=== PATIENT | male | born 1960 | race Caucasian/White ===

== ENCOUNTER 2019-12-27 08:34 | Inpatient (IN) | payer SELFPAY ==
[2019-12-27] VITALS (13 sets, daily range): BP systolic 89–136; BP diastolic 54–89
[~2019-12-27] VITALS: Ht 175.3 cm; Wt 102.5 kg
[2019-12-27] MEDS ORDERED: SODIUM CHLORIDE 0.9% 1000ML 1,000 ML IV STA ×2 (09:02→09:20)
--- NOTE | 2019-12-27 09:11 | NUR ---
GREEN SHEET ON CHART PER POLICY
[2019-12-27 09:12] LABS: BASOPHILS # (AUTO) 0.1 (0.0-0.1); BASOPHILS % 1.9 % (0.0-1.0); EOSINOPHILS # (AUTO) 0.7 (0.0-0.4); EOSINOPHILS % 9.8 % (0.0-6.0); HEMATOCRIT 45.9 % (38.2-49.6); HEMOGLOBIN 16.6 g/dL (14.0-18.0); LYMPHOCYTES # (AUTO) 1.3 (1.0-3.2); LYMPHOCYTES % 17.3 % (18.0-39.1); MEAN CORPUSCULAR HEMOGLOBIN 32.5 pg (28-32); MEAN CORPUSCULAR HGB CONC 36.2 g/dL (31-35); MONOCYTES # (AUTO) 0.8 (0.2-0.8); MONOCYTES % 10.3 % (4.4-11.3); NEUTROPHILS # (AUTO) 4.4 (2.1-6.9); NEUTROPHILS % 60.2 % (38.7-80.0); PLATELET COUNT 255 x10e3/uL (140-360); RED CELL DISTRIBUTION WIDTH 11.5 % (11.7-14.4)
[2019-12-27 09:23] LABS: INR 0.81; PROTHROMBIN TIME 11.6 seconds (11.9-14.5)
[2019-12-27 09:24] LABS: PARTIAL THROMBOPLASTIN TIME 25.9 seconds (23.8-35.5)
[2019-12-27 09:25] LABS: ABG HCO3 22 mmol/L (22-26); ABG PCO2 39 mmHg (35-45); ABG PH 7.37 (7.35-7.45); ABG PO2 100 mmHg (80-105); ABG TCO2 24
[2019-12-27 09:26] LABS: ALBUMIN 3.8 g/dL (3.5-5.0); ALBUMIN/GLOBULIN RATIO 0.7 (0.8-2.0); CALCIUM 9.1 mg/dL (8.4-10.2); CREATININE, SERUM 2.64 mg/dL (0.72-1.25); MAGNESIUM 2.7 MG/DL (1.3-2.1)
[2019-12-27 09:30] LABS: POTASSIUM 4.6 mmol/L (3.5-5.1)
[2019-12-27 09:32] LABS: CREATINE KINASE MB 0.9 ng/mL (0-5.0)
[2019-12-27 09:36] LABS: B-TYPE NATRIURETIC PEPTIDE2 11.7 pg/mL (0-100)
[2019-12-27 09:40] LABS: ANION GAP 21.6 mmol/L (8-16)
[2019-12-27 09:51] LABS: CLARITY,URINE CLEAR (CLEAR); COLOR,URINE YELLOW (YELLOW)
[2019-12-27 09:52] LABS: BILIRUBIN,URINE NEGATIVE (NEGATIVE); KETONES,URINE NEGATIVE (NEGATIVE); LEUKOCYTE ESTERASE ,URINE NEGATIVE (NEGATIVE); NITRITE,URINE NEGATIVE (NEGATIVE); PROTEIN,URINE DIPSTICK NEGATIVE (NEGATIVE); URINE UROBILINOGEN 0.2 mg/dL (0.2 - 1)
[2019-12-27 09:55] LABS: WBC,URINE (MAN) 0-5 /HPF (0-5)
[2019-12-27 09:56] LABS: EPITHELIAL CELLS,URINE FEW /LPF; RBC,URINE 0-5 /HPF (0-5)
[2019-12-27] MEDS ORDERED: INSULIN REGULAR, HUMAN 100 UNIT/1 ML 3ML VIAL IV ONE (10:15)
[2019-12-27] MEDS: CEFTRIAXONE SOD 1 GM/NS 50 ML 50 ML IV SCH (10:20)
[2019-12-27] MEDS: AZITHROMYCIN 500MG/NS 250 ML 250 ML IV SCH (10:20)
--- NOTE | 2019-12-27 10:43 | Diagnostic Imaging Report ---
EXAMINATION: CHEST SINGLE (PORTABLE) INDICATION: Shortness of breath. COMPARISON: None FINDINGS: TUBES and LINES: None. LUNGS: Normal lung volumes. There is hazy opacification the bilateral lung bases with prominent interstitial lung markings. PLEURA: There is probable bilateral small pleural effusion. No pneumothorax. HEART AND MEDIASTINUM: The cardiomediastinal silhouette is unremarkable. BONES AND SOFT TISSUES: No acute osseous lesion. Soft tissues are unremarkable. UPPER ABDOMEN: No free air under the diaphragm. IMPRESSION: 1. Hazy opacification the bilateral lung bases with prominent interstitial markings which may represent bibasilar atelectasis or developing multifocal pneumonia in the proper clinical context. 2. Probable small bilateral pleural effusion. Signed by: Jakub Figueroa MD on 12/27/2019 10:40 AM
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
[2019-12-27] MEDS ORDERED: DEXTROSE 5%/0.45% SOD CHL 1,000 ML IV SCH (11:30)
[2019-12-27] MEDS ORDERED: POTASSIUM CHLORIDE 20MEQ/100ML 200 ML IV PRN (11:30)
[2019-12-27] MEDS ORDERED: MAGNESIUM SULF 1GRAM/DEXTROSE 100 ML IV PRN (11:30)
[2019-12-27] MEDS ORDERED: INSULIN REGULAR, HUMAN 3ML VL 100 UNIT in SODIUM CHLORIDE 0.9% 99 ML IV SCH ×4 (11:30→14:30)
[2019-12-27 11:36] LABS: AMPHETAMINES SCREEN,URINE NEGATIVE (NEGATIVE); BENZODIAZEPINES SCREEN,URINE NEGATIVE (NEGATIVE); PHENCYCLIDINE SCREEN,URINE NEGATIVE (NEGATIVE)
[2019-12-27] MEDS ORDERED: ONDANSETRON HCL INJ 2MG/ML 2ML 2 MG/ML VIAL IV PRN (11:45)
[2019-12-27] MEDS ORDERED: LORAZEPAM INJ 2 MG/ML VIAL IV ONE (11:45)
--- NOTE | 2019-12-27 11:46 | NUR ---
Nursing report given Ulises TAM
[2019-12-27] MEDS ORDERED: LORAZEPAM INJ 2 MG/ML VIAL ONE (11:59)
--- OUTSIDE RECORDS SUMMARY | 2019-12-27 11:59 | XMS REPORT | Continuity of Care Document ---
Author Author [facility] t Organization [facility] Address [address] [place] [address] Dr. Vasquez [address] [place] [phone] Phone Unavailable Care Team Providers Care Blood Bank Laboratory Technician Name Role Phone Devon JARAMILLO Attphys Unavailable Problems This patient has no known problems. Allergies, Adverse Reactions, Alerts This patient has no known allergies or adverse reactions. Medications This patient has no known medications. Procedures This patient has no known procedures. Results Test Description Test Time Test Comments Results Result Comments Source CHEST SINGLE (PORTABLE) 2019-12-27 10:38:00 [place] [address] Patient Name: DENISA SHINE MR #: [id number] : 1960 Age/Sex: 59/M Req #: [id number] Adm Physician: Ordered by: SHAYY JARAMILLO MD Report #: [id number] Location: ER Room/Bed: Procedure: [id number] DX/CHEST SINGLE (PORTABLE) Exam Date: 12/27/19 Exam Time: 0940 REPORT STATUS: Signed EXAMINATION: CHEST SINGLE (PORTABLE) INDICATION: Shortness of breath. COMPARISON: None FINDINGS: TUBES and LINES: None. LUNGS: Normal lung volumes. There is hazy opacification the bilateral lung bases with prominent i nterstitial lung markings. PLEURA: There is probable bilateral small pleural effusion. No pneumothorax. HEART AND MEDIASTINUM: The cardiomediastinal silhouette is unremarkable. BONES AND SOFT TISSUES: No acute osseous lesion. Soft tissues are unremarkable. UPPER ABDOMEN: No free air under the diaphragm. IMPRESSION: 1. Hazy opacification the bilateral lung bases with prominent interstitial markings which may represent bibasilar atelectasis or developing multifocal pneumonia in the proper clinical context. 2. Probable small bilateral pleural effusion. Signed by: Keren Arroyo MD on 12/27/2019 10:40 AM Dictated By: KEREN ARROYO MD 104 Transcribed By: ELIJAH on 12/27/19 104 COPY TO: SHAYY JARAMILLO MD
[2019-12-27] MEDS ORDERED: LORAZEPAM INJ 2 MG/ML VIAL IV NR (12:00)
[2019-12-27] MEDS: SODIUM CHLORIDE 0.9% 1000ML 1,000 ML IV SCH ×2 (13:43→14:51)
[2019-12-27 13:56] LABS: ANION GAP 16.2 mmol/L (8-16); CALCIUM 8.1 mg/dL (8.4-10.2); CREATININE, SERUM 1.87 mg/dL (0.72-1.25); MAGNESIUM 2.5 MG/DL (1.3-2.1); POTASSIUM 4.2 mmol/L (3.5-5.1)
[2019-12-27 14:03] LABS: CREATINE KINASE MB 0.9 ng/mL (0-5.0)
[2019-12-27] MEDS ORDERED: DEXTROSE 50% SYRINGE 50 ML IV PRN ×2 (14:15→16:15)
[2019-12-27] MEDS ORDERED: THIAMINE HCL INJ 100 MG/ML 2ML VIAL IV NR (15:00)
--- NOTE | 2019-12-27 15:20 | Consultation ---
DATE OF CONSULTATION: Pulmonary Critical Care Consultation. CHIEF COMPLAINT: Dysuria and fatigue. REFERRING PHYSICIAN: Dr. Kip Saavedra. HISTORY OF PRESENT ILLNESS: The patient is a 59-year-old man. He came to the emergency department complaining of fatigue and dysuria. Also polydipsia. On admission was found to have a blood sugar of 1000 with significant acidosis along with hyponatremia. The patient was started on IV fluids along with the insulin drip. He has noted some improvement. PAST MEDICAL HISTORY: 1. Hepatitis C. 2. COPD. 3. Hypertension. PAST SURGICAL HISTORY: Noncontributory. ALLERGIES: NO KNOWN DRUG ALLERGIES. FAMILY HISTORY: Noncontributory. SOCIAL HISTORY: The patient was a smoker up until yesterday. He also is a drinker. He drinks several quarts of beer a day. REVIEW OF SYSTEMS: No fever or headache. He has some dyspnea and fatigue. He has no cough. He has no chest pain. He had some nausea or vomiting. PHYSICAL EXAMINATION: VITAL SIGNS: The patient is afebrile. The blood pressure is 137/90 and the pulse is 107. HEENT: No facial swelling or erythema. LYMPHATIC: No submandibular, cervical, or supraclavicular adenopathy. CARDIAC: Regular rate and rhythm with normal S1 and S2. LUNGS: Auscultation of lungs reveals rhonchorous breath sounds bilaterally. There is no wheezing. ABDOMEN: Soft nontender. There is no rebound or guarding. EXTREMITIES: No leg edema or calf tenderness. There is no cyanosis or clubbing. SKIN: No rashes. NEUROLOGICAL: No focal abnormalities. LABORATORY DATA: Sodium is 128 and the BUN to creatinine ratio is 45 to 1.87. Carbon dioxide is 21 and the anion gap is 16. White blood cell count is 7.35 and hemoglobin 16.6. The platelet count is 255,000. RADIOGRAPHIC DATA: Chest x-ray shows hyperinflation suggestive of COPD. IMPRESSION: 1. Diabetic ketoacidosis of new onset. 2. Hyponatremia. 3. Acute renal failure. 4. COPD. 5. Prior hepatitis from hepatitis C. PLAN: 1. Continue IV hydration. 2. Insulin drip. 3. Replace electrolytes. 4. Thiamin and multivitamins. 5. Librium for alcohol withdrawal prophylaxis. 6. Smoking cessation. MD MELISSA Bergman/KEATON /[id number]
[2019-12-27] MEDS ORDERED: INSULIN REGULAR, HUMAN 3ML VL 300 UNIT in SODIUM CHLORIDE 0.45% 100 ML 300 ML IV SCH ×2 (16:15)
[2019-12-27] MEDS: [UNRECOGNIZED DRUG - OTHER] IV SCH (16:36)
[2019-12-27] MEDS: POTASSIUM CHLORIDE IV SCH (16:36)
[2019-12-27] MEDS: MULTIVITAMINS IV SCH (16:36)
[2019-12-27] MEDS: NICOTINE 14 MG/EA PATCH TOP SCH (16:38)
[2019-12-27 16:45] LABS: ANION GAP 13.7 mmol/L (8-16); CREATININE, SERUM 1.55 mg/dL (0.72-1.25); MAGNESIUM 2.4 MG/DL (1.3-2.1); POTASSIUM 3.7 mmol/L (3.5-5.1)
--- NOTE | 2019-12-27 17:16 | Consultation ---
DATE OF CONSULTATION: 12/27/2019 Endocrine Consultation This is a patient of Dr. Saavedra. Thank you very much for referring this patient. HISTORY OF PRESENT ILLNESS: This is a 59-year-old white male gentleman, who was referred to me for evaluation of new onset diabetes mellitus and diabetic ketoacidosis. The patient came to the hospital with history of polyuria, polydipsia, dryness of mouth, and altered mental status. He also having nausea and vomiting. On further evaluation, his blood sugar was found to be 1000 and his anion gap was 21.6, and the sodium was only 115. The patient has multiple other medical problems including history of hypertension, COPD. He is a chronic smoker. He has also history of hepatitis C. The patient does not give history of previous diabetes or family history of diabetes mellitus. PHYSICAL EXAMINATION: GENERAL: Today, the patient is alert, awake, little bit apprehensive. He is moderately overweight. VITAL SIGNS: His heart rate is around 78, blood pressure is 100/60 mmHg. HEENT: Essentially unremarkable. Thyroid is palpable. Clinically, he is near euthyroid. CHEST: Bilateral vesicular breathing. He has bilateral bronchospasm. CARDIAC: First and second heart sounds. There is no third or fourth heart sounds. Ejection systolic murmur sound grade 2/6. 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 IMPRESSION: Diabetes mellitus type 2, uncontrolled; new onset diabetic ketoacidosis, dehydration, hyponatremia, acute renal insufficiency, chronic obstructive pulmonary disease, hypertension, history of hepatitis C. PLAN: The patient has been started on insulin drip IV fluids, monitor his blood sugars closely. Needs extensive diabetic and dietary education. Thanks again referring this patient. I will be following this patient with you. MD CORRY Romo/MODL /[id number]
[2019-12-27 17:36] LABS: CHOL/HDL RATIO 5.5 (3.9-4.7)
[2019-12-27 17:56] LABS: FREE T4 (FREE THYROXINE) 0.75 ng/dL (0.8-1.8); THYROID STIMULATING HORMONE 0.648 uIU/mL (0.350-4.940)
[2019-12-27] MEDS ORDERED: HYDRALAZINE HCL 20 MG/ML VIAL IV PRN (20:15)
[2019-12-27] MEDS ORDERED: ACETAMINOPHEN 325 MG TAB PO PRN (20:15)
--- NOTE | 2019-12-27 21:30 | NUR ---
Received report from [facility] nurse at 1930. Pt is on 2u/hr of insulin R. Banana bag going at 125cc/hr. Pt is alert and orientedx4, on 2L NC saturating between 94-97%. Bilateral PIVs are patent/clean/dry/intact NSR on monitor. BP WNL. Pt was assisted with using urinal but pt is independent. Pt denies using oxygen at home however bilateral lobes are "tight", diminished, and there is wheezing in right lower and mid lobes during inspiration. Pt is noted to get SOB with minimal exertion. It is also noted that pt's initial sodium on BMP @0853 was 115 and @1630 was 132. Pt denies any pain at this time but was made aware of using call barroso for any concerns with dizziness and/or headaches. No other needs expressed. PO Librium was given. Bed locked in lowest position with call barroso in reach. BMP and A1C sent to lab. Cousin (Fish Lemus) and father (Mikie Rosales) were updated on pt's status.
[2019-12-27] MEDS: CHLORDIAZEPOXIDE HCL 25 MG CAP PO SCH (21:37)
[2019-12-27 21:46] LABS: ANION GAP 16.1 mmol/L (8-16); CALCIUM 8.6 mg/dL (8.4-10.2); CREATININE, SERUM 1.43 mg/dL (0.72-1.25); MAGNESIUM 2.3 MG/DL (1.3-2.1); POTASSIUM 4.1 mmol/L (3.5-5.1)
[2019-12-27 22:05] LABS: CREATINE KINASE MB 1.1 ng/mL (0-5.0)
[2019-12-28] VITALS (25 sets, daily range): BP systolic 97–139; BP diastolic 63–91
[2019-12-28] MEDS: [UNRECOGNIZED DRUG - OTHER] IV SCH ×2 (01:30→09:46)
[2019-12-28] MEDS: MULTIVITAMINS IV SCH ×2 (01:30→09:46)
[2019-12-28] MEDS: POTASSIUM CHLORIDE IV SCH ×2 (01:30→09:46)
[2019-12-28 02:39] LABS: ANION GAP 13.2 mmol/L (8-16); CREATININE, SERUM 1.26 mg/dL (0.72-1.25); MAGNESIUM 2.2 MG/DL (1.3-2.1); POTASSIUM 4.2 mmol/L (3.5-5.1)
[2019-12-28 06:01] LABS: BASOPHILS # (AUTO) 0.1 (0.0-0.1); BASOPHILS % 1.5 % (0.0-1.0); EOSINOPHILS # (AUTO) 0.7 (0.0-0.4); EOSINOPHILS % 9.7 % (0.0-6.0); HEMOGLOBIN 14.9 g/dL (14.0-18.0); LYMPHOCYTES # (AUTO) 1.3 (1.0-3.2); LYMPHOCYTES % 17.7 % (18.0-39.1); MEAN CORPUSCULAR HEMOGLOBIN 32.1 pg (28-32); MEAN CORPUSCULAR HGB CONC 35.5 g/dL (31-35); MEAN CORPUSCULAR VOLUME 90.5 fL (81-99); MONOCYTES # (AUTO) 0.5 (0.2-0.8); MONOCYTES % 6.8 % (4.4-11.3); NEUTROPHILS # (AUTO) 4.7 (2.1-6.9); PLATELET COUNT 185 x10e3/uL (140-360); RED BLOOD COUNT 4.64 x10e6/uL (4.3-5.7); RED CELL DISTRIBUTION WIDTH 11.5 % (11.7-14.4)
[2019-12-28 06:21] LABS: ALANINE AMINOTRANSFERASE 374 IU/L (0-55); ALBUMIN 2.9 g/dL (3.5-5.0); ALBUMIN/GLOBULIN RATIO 0.8 (0.8-2.0); ALKALINE PHOSPHATASE 61 IU/L (40-150); ANION GAP 13.7 mmol/L (8-16); BLOOD UREA NITROGEN 27 mg/dL (7-26); BUN/CREATININE RATIO 23 (6-25); CALCIUM 8.1 mg/dL (8.4-10.2); CARBON DIOXIDE 22 mmol/L (22-29); CHLORIDE 100 mmol/L (98-107); CHOL/HDL RATIO 6.7 (3.9-4.7); CHOLESTEROL 161 MD/DL (0-199); EST GLOMERULAR FILTRATION RATE > 60 ML/MIN (60-); GLUCOSE 122 mg/dL (74-118); HDL CHOLESTEROL 24 MG/DL (40-60); LDL CHOLESTEROL 72 MG/DL (60-130); POTASSIUM 3.7 mmol/L (3.5-5.1); SODIUM 132 mmol/L (136-145); TRIGLYCERIDES 324 MG/DL (0-149)
[2019-12-28] MEDS: CHLORDIAZEPOXIDE HCL 25 MG CAP PO SCH ×2 (09:25→20:59)
[2019-12-28] MEDS: FAMOTIDINE 20 MG/2 ML VIAL IV SCH ×2 (09:25→18:28)
[2019-12-28] MEDS: NICOTINE 14 MG/EA PATCH TOP SCH (09:25)
[2019-12-28] MEDS: CEFTRIAXONE SOD 1 GM/NS 50 ML 50 ML IV SCH (09:29)
[2019-12-28] MEDS: AZITHROMYCIN 500MG/NS 250 ML 250 ML IV SCH (10:30)
[2019-12-28] MEDS ORDERED: HYDROCHLOROTHIA25 MG (11:11)
[2019-12-28] MEDS ORDERED: GLIMEPIRIDE2 MG PO (11:11)
[2019-12-28] MEDS ORDERED: LISINOPRIL10 MG PO (11:11)
[2019-12-28] MEDS ORDERED: INSULIN LISPRO 100 UNIT/1 ML 3ML VIAL SQ ONE (15:00)
[2019-12-28] MEDS ORDERED: INSULIN LISPRO 100 UNIT/1 ML 3ML VIAL SQ SCH (16:30)
[2019-12-28] MEDS ORDERED: OMEGA 3 POLYUNSAT FATTY ACIDS 1000 MG SOFTGEL PO SCH (17:00)
[2019-12-28 17:22] LABS: ALANINE AMINOTRANSFERASE 412 IU/L (0-55); ALBUMIN/GLOBULIN RATIO 0.9 (0.8-2.0); ALKALINE PHOSPHATASE 54 IU/L (40-150); ANION GAP 13.8 mmol/L (8-16); BLOOD UREA NITROGEN 20 mg/dL (7-26); BUN/CREATININE RATIO 18 (6-25); CALCIUM 8.4 mg/dL (8.4-10.2); CARBON DIOXIDE 22 mmol/L (22-29); CHLORIDE 101 mmol/L (98-107); CREATININE, SERUM 1.13 mg/dL (0.72-1.25); EST GLOMERULAR FILTRATION RATE > 60 ML/MIN (60-); GLUCOSE 161 mg/dL (74-118); POTASSIUM 4.8 mmol/L (3.5-5.1); SODIUM 132 mmol/L (136-145)
[2019-12-28] MEDS ORDERED: SODIUM CHLORIDE 0.9% 1000ML 1,000 ML IV ONE (17:45)
[2019-12-28] MEDS: INSULIN LISPRO 100 UNIT/1 ML 3ML VIAL SQ SCH ×3 (18:24→21:00)
[2019-12-28] MEDS: OMEGA 3 POLYUNSAT FATTY ACIDS 1000 MG SOFTGEL PO SCH (18:28)
[2019-12-28] MEDS ORDERED: ATORVASTATIN 40 MG TAB PO SCH (21:00)
[2019-12-28] MEDS ORDERED: INSULIN GLARGINE 100 UNITS/ML VIAL SQ SCH (21:00)
--- NOTE | 2019-12-28 21:00 | NUR ---
Received handoff from daysidft nurse at 1900. Insulin gtt turned off at 5pm today. Pt is now switched over to humalog and lantus. Pt's BG was checked @1930 since daysidft nurse administered 9u of humalog at 1830, BG was 306. BG was rechecked at 2100 and was 313. 6u of Humalog given and 15u of Lantus (1st time given). Pt remains alert and oriented x3. Pt has had several BMs on dayshift as well as one already on shift nurse manager. Pt uses the urinal with no assistance. NS going in L PIV @100cc/hr. Last BMP was revealed potassium of 4.8, peaked T waves on tele. HR stable, pt denies CP. Pt now on RA saturating 94-97%. Wheezing and diminished breath sounds are heard throughout lobes. Pt denies SOB. No other needs expressed. Awaiting transfer orders.
--- NOTE | 2019-12-28 23:50 | NUR ---
Report was called to ANEL Morris @ [id number]. Pt was transferred to Med/Surg, RM 294 via wheelchair @5967. Tele box was placed on pt. Bilateral PIVs remain clean/dry/patent/intact Pt remains A&Ox3, RA @97%, BP 116/90, HR 60s-70s SR with peaked Twaves. Pt denies CP or SOB. No needs expressed from receiving nurse or patient.
[2019-12-29] VITALS (7 sets, daily range): BP systolic 107–146; BP diastolic 64–93
--- NOTE | 2019-12-29 | NUR ---
Received pt from ICU-192. Pt alert, awake, and oriented x 3. medical affairs manager 33 intact. No needs verbalized. Call light within reach. Will continue to monitor pt.
--- NOTE | 2019-12-29 00:10 | NUR ---
Pt to CT via wheelchair. materials specialist intact. Rhythm SR with heart rate of 78. Pt alert and awake at time of departure.
--- NOTE | 2019-12-29 02:09 | Diagnostic Imaging Report ---
EXAM: CT Chest WITHOUT contrast INDICATION: ^r/o pna COMPARISON: Chest x-ray dated 12/27/2019 TECHNIQUE: Chest was scanned utilizing a multidetector helical scanner from the lung apex through the level of the adrenal glands without administration of IV contrast. Absence of intravenous contrast decreases sensitivity for detection of lymphadenopathy and vascular pathology. Coronal and sagittal reformations were obtained. Routine protocol was performed. IV CONTRAST: None COMPLICATIONS: None RADIATION DOSE: Total DLP: 616.17 mGy*cm Estimated effective dose: (DLP x 0.014 x size factor) mSv CTDIvol has been reviewed. It is below the limits set by the Radiation Protocol Committee (RPC). FINDINGS: LINES/ TUBES: None. LUNGS AND AIRWAYS: Scattered bullous changes, most notable in right apex. Mild upper lobe predominant centrilobular emphysematous changes. Medial right upper lobe focal scarring with mild traction bronchiectasis (series 3, image 59). Left basilar scarring. 5 mm lingular nodule (series 3, image 99). Airways are normal. PLEURA: The pleural spaces are clear. HEART AND MEDIASTINUM: The thyroid gland is normal. No mediastinal, hilar or axillary lymphadenopathy. The heart is normal in size.. There is no pericardial effusion. Atherosclerotic calcification of aorta and coronary arteries. Fluid within mid esophagus, suggestive of gastroesophageal reflux. UPPER ABDOMEN: Hepatic steatosis. Hepatic dome 1.2 cm hypodensity cannot be characterized on this unenhanced study. BONES: The visualized bony thorax is within normal limits. SOFT TISSUES: Unremarkable. IMPRESSION: No evidence of pneumonia. Chronic changes of the lungs as described above. 5 mm lingular nodule. Without risk factors, no follow-up is necessary. With risk factors, follow-up with low-dose chest CT in one year is optional. Hepatic steatosis. Hepatic dome hypodensity cannot be characterized on this unenhanced study. Recommend nonurgent right upper quadrant ultrasound for further evaluation. Signed by: Dr. Glenroy Bright MD on 12/29/2019 2:06 AM
[2019-12-29 06:37] LABS: BASOPHILS # (AUTO) 0.1 (0.0-0.1); BASOPHILS % 1.4 % (0.0-1.0); EOSINOPHILS # (AUTO) 0.8 (0.0-0.4); EOSINOPHILS % 12.5 % (0.0-6.0); HEMATOCRIT 44.8 % (38.2-49.6); HEMOGLOBIN 15.6 g/dL (14.0-18.0); LYMPHOCYTES # (AUTO) 1.3 (1.0-3.2); LYMPHOCYTES % 21.1 % (18.0-39.1); MEAN CORPUSCULAR HEMOGLOBIN 32.1 pg (28-32); MEAN CORPUSCULAR HGB CONC 34.8 g/dL (31-35); MEAN CORPUSCULAR VOLUME 92.2 fL (81-99); MONOCYTES # (AUTO) 0.5 (0.2-0.8); MONOCYTES % 8.3 % (4.4-11.3); NEUTROPHILS # (AUTO) 3.5 (2.1-6.9); NEUTROPHILS % 56.2 % (38.7-80.0); PLATELET COUNT 189 x10e3/uL (140-360); RED BLOOD COUNT 4.86 x10e6/uL (4.3-5.7); RED CELL DISTRIBUTION WIDTH 11.6 % (11.7-14.4)
[2019-12-29 06:55] LABS: ALANINE AMINOTRANSFERASE 483 IU/L (0-55); ALBUMIN 3.3 g/dL (3.5-5.0); ALBUMIN/GLOBULIN RATIO 0.9 (0.8-2.0); ALKALINE PHOSPHATASE 64 IU/L (40-150); ANION GAP 12.8 mmol/L (8-16); BLOOD UREA NITROGEN 14 mg/dL (7-26); BUN/CREATININE RATIO 12 (6-25); CALCIUM 8.7 mg/dL (8.4-10.2); CARBON DIOXIDE 22 mmol/L (22-29); CHLORIDE 101 mmol/L (98-107); CREATININE, SERUM 1.15 mg/dL (0.72-1.25); EST GLOMERULAR FILTRATION RATE > 60 ML/MIN (60-); GLUCOSE 182 mg/dL (74-118); POTASSIUM 4.8 mmol/L (3.5-5.1); SODIUM 131 mmol/L (136-145)
--- NOTE | 2019-12-29 07:00 | NUR ---
RECEIVED BEDSIDE REPORT FROM OFF GOING NIGHT NURSE. PATIENT IN STABLE CONDITION, NO S/S OF DISTRESS NOTED. NO PAIN VOICED. TELEMETRY APPLIED. IV SITE ASYMPTOMATIC AND PATENT, TRANSPARENT DRESSING C/D/I. BED IN LOWEST POSITION AND LOCKED, SIDE RAILS X 2. CALL LIGHT WITHIN REACH.
[2019-12-29] MEDS: INSULIN LISPRO 100 UNIT/1 ML 3ML VIAL SQ SCH ×6 (07:30→20:05)
--- NOTE | 2019-12-29 08:56 | NUR ---
GAVE PACKET OF INFORMATION WITH COMM[employer]ITY [employer] FOR ASSISTANCE WITH LOW TO NO INCOME TO PATIENT. RESOURCES THAT PATIENT MAY BE ABLE TO FOLLOW UP UPON DISCHARGE. PT EDUCATED ON EACH RESOURCE AND UNDERSTANDING HOW TO FOLLOW UP TO SEE IF QUALIFIED FOR EACH RESOURCE.
[2019-12-29] MEDS ORDERED: SODIUM CHLORIDE 0.9% 250ML 250 ML ONE (09:19)
[2019-12-29] MEDS: CEFTRIAXONE SOD 1 GM/NS 50 ML 50 ML IV SCH (09:27)
[2019-12-29] MEDS: FENOFIBRATE 145 MG TAB PO SCH (09:27)
[2019-12-29] MEDS: FAMOTIDINE 20 MG/2 ML VIAL IV SCH ×2 (09:27→17:35)
[2019-12-29] MEDS: NICOTINE 14 MG/EA PATCH TOP SCH (09:27)
[2019-12-29] MEDS: OMEGA 3 POLYUNSAT FATTY ACIDS 1000 MG SOFTGEL PO SCH ×2 (09:27→17:35)
[2019-12-29] MEDS: CHLORDIAZEPOXIDE HCL 25 MG CAP PO SCH ×2 (09:27→20:07)
[2019-12-29] MEDS: AZITHROMYCIN 500MG/NS 250 ML 250 ML IV SCH (10:53)
--- NOTE | 2019-12-29 12:04 | NUR ---
Discontinuing PT services since patient is Mod I in functional mobility. Thank you Addendum: 12/29/19 at 1205 by Omar aparicio PT Amended: Links added.
[2019-12-29] MEDS ORDERED: FENOFIBRATE145 MG PO (12:25)
[2019-12-29] MEDS ORDERED: OMEGA-3 FISH O1 EAC2 PO (12:25)
--- NOTE | 2019-12-29 16:23 | NUR ---
WOUND CARE INITIAL CONSTULT FOR 59 YO MALE ADMITTED TO [facility] WITH A PRESENT HX ARF, HYPERSMOLAR NON KETOTIC STATE- DUE TO TYPE 2.0 VIVIEN 23 ON CONSERVATIVE PUP STATUS AND INTERVENTIONS SURFACE: REGULAR VISCO MATTRESS. LABS: WBC- 6.25 HGB- 15.6 GLUCOSE-182 ALBUMIN-3.3 MICRO: BLOOD CULTURE: NO GROWTH URINE CULTURE: NO GROWTH MEDS: AZITHROMYCIN CEFTRIAXONE SKIN ASSESSMENT COMPLETE, PATIENT PRESENTS WITH 1)RIGHT PLANTAR PUNCTURED LACERATION MEASURING 0.2CM X 0.2 CM; COVERED IN 100% ESCHAR; NO DRAINAGE; CALLUS PERIWOUND. RECOMMENDATIONS: NURSING TO CLEAN RIGHT PLANTAR ESCHAR AREA WITH NORMAL SALINE, PAT DRY WITH 4X4 GAUZE, APPLY BETADINE; COVER WITH 4X4 GAUZE AND SECURE WITH TAPE DAILY. NURSING TO CONTINUE TO MONITOR PATIENT AND KEEP SKIN CLEAN AND FREE FROM STOOL OR IRRITATING MOISTURE AND CONTINUE TO FOLLOW MODERATE PUP INTERVENTIONS DAILY. NURSING TO CONTINUE REPOSITION PT SIDE TO SIDE EVERY TWO HOURS AND NEEDED. NURSING TO APPLY REGULAR VISCO MATTRESS. NURSING TO CONTINUE TO OFFLOAD BILATERAL LOWER EXTREMITIES ALL TIMES WITH PILLOW SUSPENSION WHEN IN BED. NURSING TO CONTINUE TO ASSIST WITH PT NUTRITIONAL SUPPLEMENTS TO ENSURE PROPER REQUIREMENTS FOR HEALING. NURSING TO ASSIST PT OUT OF BED FOR MEALS. NURSING TO RE- CONSULT WOUND CARE NEEDED. Addendum: 12/29/19 at 1626 by Nida Aguero RN Amended: Links added.
--- NOTE | 2019-12-29 17:00 | NUR ---
TAUGHT THE PATIENT HOW TO GIVE HIMSELF INSULIN INJECTIONS, AND TO ROTATE THE SITES.
--- NOTE | 2019-12-29 19:07 | NUR ---
COMPLETED BEDSIDE SHIFT REPORT WITH ONCOMING NIGHT NURSE. PATENT IN STABLE CONDTION, NO S/S OF DISTRESS NOTED. NO PAIN VOICED. TELEMETRY APPLIED. IV SITE ASYMPTOMATIC AND PATENT, TRANSPARENT DRESSING C/D/I. BED IN LOWEST POSITION AND LOCKED, SIDE RAILS X 2, NONSKID SOCKS APPLIED. CALL LIGHT WITHIN REACH.
[2019-12-29] MEDS ORDERED: INSULIN GLARGINE 100 UNITS/ML VIAL SQ SCH (21:00)
[2019-12-30] VITALS: BP 116/84
[2019-12-30 04:00] VITALS: BP 167/99
[2019-12-30 06:13] LABS: BASOPHILS # (AUTO) 0.1 (0.0-0.1); BASOPHILS % 1.5 % (0.0-1.0); EOSINOPHILS # (AUTO) 0.8 (0.0-0.4); EOSINOPHILS % 12.5 % (0.0-6.0); HEMATOCRIT 41.4 % (38.2-49.6); HEMOGLOBIN 14.4 g/dL (14.0-18.0); LYMPHOCYTES # (AUTO) 1.2 (1.0-3.2); LYMPHOCYTES % 20.4 % (18.0-39.1); MEAN CORPUSCULAR HEMOGLOBIN 32.3 pg (28-32); MEAN CORPUSCULAR HGB CONC 34.8 g/dL (31-35); MEAN CORPUSCULAR VOLUME 92.8 fL (81-99); MONOCYTES # (AUTO) 0.5 (0.2-0.8); MONOCYTES % 8.9 % (4.4-11.3); NEUTROPHILS # (AUTO) 3.4 (2.1-6.9); PLATELET COUNT 181 x10e3/uL (140-360); RED BLOOD COUNT 4.46 x10e6/uL (4.3-5.7); RED CELL DISTRIBUTION WIDTH 11.6 % (11.7-14.4)
[2019-12-30 06:34] LABS: ALANINE AMINOTRANSFERASE 446 IU/L (0-55); ALBUMIN 3.1 g/dL (3.5-5.0); ALBUMIN/GLOBULIN RATIO 0.9 (0.8-2.0); ALKALINE PHOSPHATASE 56 IU/L (40-150); ANION GAP 13.3 mmol/L (8-16); BLOOD UREA NITROGEN 16 mg/dL (7-26); BUN/CREATININE RATIO 15 (6-25); CALCIUM 8.6 mg/dL (8.4-10.2); CARBON DIOXIDE 22 mmol/L (22-29); CHLORIDE 102 mmol/L (98-107); CREATININE, SERUM 1.07 mg/dL (0.72-1.25); EST GLOMERULAR FILTRATION RATE > 60 ML/MIN (60-); GLUCOSE 165 mg/dL (74-118); POTASSIUM 4.3 mmol/L (3.5-5.1); SODIUM 133 mmol/L (136-145)
[2019-12-30] MEDS ORDERED: FENOFIBRATE145 MG PO (07:12)
[2019-12-30] MEDS: INSULIN LISPRO 100 UNIT/1 ML 3ML VIAL SQ SCH ×4 (07:30→11:53)
[2019-12-30] MEDS ORDERED: ONDANSETRON HCL 4 MG ORAL DISINTEGRATING TAB PO PRN (08:00)
[2019-12-30 08:02] VITALS: BP 132/65
[2019-12-30 08:04] VITALS: BP 132/65
[2019-12-30] MEDS: CHLORDIAZEPOXIDE HCL 25 MG CAP PO SCH (09:00)
[2019-12-30] MEDS: OMEGA 3 POLYUNSAT FATTY ACIDS 1000 MG SOFTGEL PO SCH (09:00)
[2019-12-30] MEDS: FENOFIBRATE 145 MG TAB PO SCH (09:00)
[2019-12-30] MEDS: FAMOTIDINE 20 MG/2 ML VIAL IV SCH (09:00)
[2019-12-30] MEDS: NICOTINE 14 MG/EA PATCH TOP SCH (09:00)
[2019-12-30] MEDS: CEFTRIAXONE SOD 1 GM/NS 50 ML 50 ML IV SCH (09:30)
[2019-12-30] MEDS: AZITHROMYCIN 500MG/NS 250 ML 250 ML IV SCH (10:42)
[2019-12-30 11:26] VITALS: BP 136/87
--- NOTE | 2019-12-30 14:53 | NUR ---
PATIENT DISCHARGED HOME. PATIENT OFF THE UNIT @ 1436 VIA WHEELCHAIR ACCOMPANIED TO THE LOBBY BY PCT. PATIENT IN STABLE CONDITION, NO S/S OF DISTRESS NOTED. NO PAIN VOICED. IV ACCESS REMOVED WITH TIP INTACT. ALL PERSONAL ITEMS TAKEN WITH THE PATIENT. DISCHARGE TEACHING AND INSTRUCTIONS GIVEN TO THE PATIENT. PATIENT VERBALIZED UNDERSTANDING. DISCHARGE PAPERWORK AND PRESCRIPTIONS GIVEN TO THE PATIENT.
[2019-12-30] MEDS ORDERED: LISINOPRIL 20 MG TAB PO SCH (21:00)
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
== END 2019-12-30 14:46 | disposition home or self-care (01) | DRG 638 ==
LOC: EDBD 08:34 → ER 09:07 → ERHOLD 11:35 → ICU 12:30 → MED/SURG3 12-28 23:58
PROVIDERS: ADMIT Internal Medicine; ATTEND Internal Medicine
DX: E11.10 Type 2 diabetes mellitus with ketoacidosis without coma (principal); E87.1 Hypo-osmolality and hyponatremia; N17.9 Acute kidney failure, unspecified; Z79.4 Long term (current) use of insulin; Z11.59 Encounter for screening for other viral diseases; J44.9 Chronic obstructive pulmonary disease, unspecified; E78.1 Pure hyperglyceridemia; R74.0 Nonspecific elevation of levels of transaminase and lactic acid dehydrogenase [LDH]; E66.9 Obesity, unspecified; Z68.32 Body mass index [BMI] 32.0-32.9, adult; Z86.19 Personal history of other infectious and parasitic diseases; I10 Essential (primary) hypertension; E86.0 Dehydration; K76.0 Fatty (change of) liver, not elsewhere classified; E11.40 Type 2 diabetes mellitus with diabetic neuropathy, unspecified; F17.200 Nicotine dependence, unspecified, uncomplicated
CPT/HCPCS: 36415; 36600; 71045; 71250; 80048; 80053; 80061; 80307; 81001; 82550; 82553; 82805; 82948; 83036; 83605; 83735; 83880; 84439; 84443; 84484; 85025; 85610; 85730; 87040; 87086; 93005; 99284; J0456; J0696; J1815; J1817; J2060; J3475; J3480; J7030; J7050; U0002

== ENCOUNTER → 2023-09-11 | Outpatient (REF) | payer OTHER ==
[~2023-09-11] MED LIST: ALBUTEROL0.63 MG/3 NEB; ATORVASTATIN CA20 MG PO; FENOFIBRATE145 MG PO; GLIMEPIRIDE2 MG PO; HYDROCHLOROTHIA25 MG; LISINOPRIL10 MG PO; LOSARTAN-HCTZ1 EAC1; METFORMIN HCL500 MG PO; OMEGA-3 FISH O1 EAC2 PO; PROTONIX20 MG PO
== END ==
LOC: EDSTATUS 13:00 → RESP 13:10
PROVIDERS: ATTEND Nurse Practitioner Family
DX: R05.3 Chronic cough (principal); J44.9 Chronic obstructive pulmonary disease, unspecified; J98.4 Other disorders of lung; J43.9 Emphysema, unspecified; E66.3 Overweight
CPT/HCPCS: 94060; 94727; 94729

== ENCOUNTER → 2023-11-29 | Outpatient (REF) | payer OTHER | LOC: CT 11:40 | PROVIDERS: ATTEND Nurse Practitioner Family | DX: R05.3 Chronic cough (principal); J44.9 Chronic obstructive pulmonary disease, unspecified; J98.4 Other disorders of lung; J43.9 Emphysema, unspecified; E66.3 Overweight | CPT/HCPCS: 71250 ==

== ENCOUNTER → 2024-09-25 | Outpatient (REF) | payer OTHER | LOC: EDSTATUS 15:00 → RESP 15:39 | PROVIDERS: ATTEND Internal Medicine | DX: R05.3 Chronic cough (principal); J44.9 Chronic obstructive pulmonary disease, unspecified; R91.8 Other nonspecific abnormal finding of lung field; J98.4 Other disorders of lung; J43.9 Emphysema, unspecified; E66.3 Overweight; F17.200 Nicotine dependence, unspecified, uncomplicated | CPT/HCPCS: 94060; 94727; 94729 ==

== ENCOUNTER → 2024-12-11 | Outpatient (REF) | payer OTHER | LOC: CT 13:59 | PROVIDERS: ATTEND Nurse Practitioner Family | DX: J44.9 Chronic obstructive pulmonary disease, unspecified (principal); F17.210 Nicotine dependence, cigarettes, uncomplicated | CPT/HCPCS: 71250 ==